=== PATIENT | female | born 1970 | race Caucasian/White ===

== ENCOUNTER 2018-08-03 10:52 | Observation (INO) ==
[2018-08-03] MEDS ORDERED: Metoprolol Tartrate 25 MG Tablet PO ONE (11:40)
[2018-08-03] MEDS ORDERED: Chlorhexidine Gluconate 2% 1 Pack (2 Cloths) TOPICAL ONE (11:40)
[2018-08-03] MEDS ORDERED: Sodium Chlor 0.9% Inj 500 ML IV.SIG ONE (12:00)
[2018-08-03] MEDS ORDERED: ceFAZolin 2 GM IV; once IV.SIG SCH (12:00)
[2018-08-03] MEDS ORDERED: Sodium Chloride 0.9% 2 ML Flush PRN IV.FLUSH (12:31)
[2018-08-03] MEDS ORDERED: Bupivacaine/Epinephrine Inj 0.25% 50 ML Vial ONE (12:39)
[2018-08-03] MEDS ORDERED: Glycopyrrolate Inj 1 MG/5 ML Syringe IV.PUSH ONE (15:02)
[2018-08-03] MEDS ORDERED: Normosol-R pH 7.4 Inj 2,000 ML IV.CONT ONE (15:02)
[2018-08-03] MEDS ORDERED: Neostigmine Inj 5 MG/5 ML Syringe IV.PUSH ONE (15:02)
[2018-08-03] MEDS ORDERED: Lidocaine PF 1% Inj 5 ML Syringe OTHER ONE (15:02)
[2018-08-03] MEDS ORDERED: Phenylephrine/NS 1000 MCG/10ML Syringe IV.PUSH ONE (15:02)
[2018-08-03] MEDS ORDERED: fentaNYL Citrate Inj 100 MCG/2 ML Ampul ONE ×2 (15:23→16:44)
[2018-08-03] MEDS ORDERED: Post-op Orders (for Pharmacy) OTHER ONE (16:22)
[2018-08-03] MEDS ORDERED: Naloxone Inj 0.4 MG/ML Vial IV.PUSH PRN (16:22)
--- NOTE | 2018-08-03 16:29 | P.OP ---
- Preoperative Diagnosis (1) Splenic mass (2) Abnormal gastrointestinal PET scan (3) Recurrent carcinoma of ovary - Postoperative Diagnosis (1) Abnormal gastrointestinal PET scan (2) Recurrent carcinoma of ovary (3) Splenic mass Date of procedure: 08/03/18 Procedure: Laparoscopic splenectomy Laparoscopic lysis of adhesions Laparoscopic peritoneal biopsies Anesthesia: CARMEN Surgeon: Curtis Flores MD Hydrodynamicist: Jamir Waldron CFA Estimated blood loss (mL): 20 Pathology: other (Spleen; peritoneal biopsy x 2) Operation and Findings: Operative findings: extensive adhesions throughout the abdomen. Uncomplicated splenectomy. Peritoneal nodules right upper quadrant- two biopsies sent. Procedure in detail: Patient was taken to operating room and placed in a supine position. General endotracheal anesthesia was induced. The abdomen is prepped and draped in usual sterile fashion and a surgical timeout was performed to verify correct patient procedure and site. Appropriate preoperative antibiotics were administered. Local anesthetic was injected in the skin and subcutaneous tissue in the right mid abdomen and a 5 mm incision made. Using the Optiview trocar with the laparoscope in place the abdomen was directly entered. It was insufflated to 15 mmHg with CO2 gas which the patient tolerated well. There were noted to be extensive intra-abdominal adhesions. A second 5 mm port was able to be placed in the upper midline. The transverse colon was adherent to the left upper abdominal wall. Some adhesions superior to the colon were carefully brought down sharply and the 15 mm port was placed.
[2018-08-03] MEDS ORDERED: ALPRAZolam 0.5 MG Tablet PO PRN (16:30)
[2018-08-03] MEDS ORDERED: *morphine SULFATE 10 MG/ML PERIprocedure ONLY ONE (16:41)
[2018-08-03] MEDS ORDERED: Morphine Inj 4 MG/ML Vial ONE (16:44)
[2018-08-03] MEDS ORDERED: *morphine SULFATE 4 MG/ML PERIprocedure ONLY ONE (16:49)
[2018-08-03] MEDS ORDERED: *HYDROmorphone PF Inj 1 MG/ML Ampul PERIprocedural Use ONLY ONE ×2 (16:57→17:26)
[2018-08-03] MEDS ORDERED: Montelukast 10 MG Tablet PO SCH (18:00)
[2018-08-03] MEDS: Ketorolac 10 MG Tablet PO SCH ×2 (21:00→23:43)
[2018-08-03] MEDS: buPROPion 100 MG Tablet PO SCH (21:00)
[2018-08-03] MEDS ORDERED: DULERA INH SCH (21:00)
[2018-08-03] MEDS: Sodium Chloride 0.9% 2 ML Flush BID IV.FLUSH SCH (21:01)
[2018-08-04] MEDS: Ketorolac 10 MG Tablet PO SCH (05:50)
[2018-08-04 06:17] LABS: Baso % (Auto) 0.1 % (0.0-2.0); Hemoglobin 11.5 gm/dL (11.6-15.3); Lymph # (Auto) 1.1 th/mm3 (1.0-4.8); Mean Corpuscular HGB Conc 33.9 % (32.0-36.0); Mean Corpuscular Hemoglobin 32.4 pg (27.0-34.0); Mean Corpuscular Volume 95.5 fL (80.0-100.0); Mean Platelet Volume 7.6 fL (7.0-11.0); Mono # (Auto) 0.6 th/mm3 (0.0-0.9); Mono % (Auto) 5.2 % (0.0-8.0); Neut # (Auto) 9.7 th/mm3 (1.8-7.7); Neut % (Auto) 84.7 % (16.0-70.0); Platelet Count 235 th/mm3 (150-450); Red Blood Count 3.56 mil/mm3 (4.00-5.30); Red Cell Distribution Width 13.6 % (11.6-17.2); White Blood Count 11.4 th/mm3 (4.0-11.0)
[2018-08-04 08:19] VITALS: BP 129/62; PULSE 77; RESP 17; TEMP 97.7; O2SAT 99
[2018-08-04] MEDS: buPROPion 100 MG Tablet PO SCH (08:48)
[2018-08-04] MEDS: Sodium Chloride 0.9% 2 ML Flush BID IV.FLUSH SCH (08:54)
--- NOTE | 2018-08-04 09:19 | P.PNGS ---
Subjective Patient reports: no new complaints, tolerating liquids well, no flatus Physical Exam Vital signs: Vital Signs 08/03/18 11:45 08/03/18 16:33 08/03/18 16:45 Temperature 98.5 F 97.7 F Pulse Rate 93 H 82 80 Respiratory Rate 16 17 17 Blood Pressure 128/80 127/66 141/66 H Pulse Oximetry 97 100 08/03/18 16:59 08/03/18 17:00 08/03/18 17:15 Temperature Pulse Rate 81 81 83 Respiratory Rate 17 17 16 Blood Pressure 118/67 117/66 Pulse Oximetry 100 100 100 08/03/18 17:30 08/03/18 17:35 08/03/18 17:50 Temperature 97.8 F 97.7 F Pulse Rate 83 82 Respiratory Rate 18 14 Blood Pressure 114/67 115/66 Pulse Oximetry 97 100 99 08/03/18 19:20 08/03/18 20:00 08/04/18 01:05 Temperature 97.2 F L 97.2 F L Pulse Rate 81 76 Respiratory Rate 16 18 18 Blood Pressure 113/64 111/62 Pulse Oximetry 97 98 08/04/18 04:00 08/04/18 08:00 Temperature 97.4 F L 97.7 F Pulse Rate 73 77 Respiratory Rate 18 17 Blood Pressure 108/65 129/62 Pulse Oximetry 98 99 Intake & Output 08/03/18 08/04/18 08/04/18 18:59 06:59 18:59 Intake Total 2450 / 2450 Output Total 210 / 210 Balance 2240 / 2240 Weight 71.8 kg Intake: IV 50 / 50 Ancef 2 GM Premix Inj 2 gm In 50 / 50 50 ml @ 100 mls/hr IV.SIG LEAN SIX SIGMA BLACK BELT [facility] Rx#:[id number] Anesthesia Amount 2400 / 2400 Output: Estimated Blood Loss 10 10 Urine Amount (Catheter) 200 / 200 Indwelling Urethral Catheter 200 / 200 Other: # Voids 1 Weight On Admission 71.8 kg - Constitutional no acute distress - Routine Abdominal Exam Present: soft, tenderness Comments: incisional tenderness - Urinary Catheter Management Indwelling Urethral Catheter Cath placed during this visit: yes, but has since been removed by the nurse Reason for continuing: Decision to DC catheter Insertion date: 08/03/18 Insertion time: 13:22 Removal date: 10/26/18 Removal time: 16:25 Results - Labs 08/04/18 05:13 Laboratory Results - last 24 hr 08/04/18 05:13 WBC 11.4 H RBC 3.56 L Hgb 11.5 L Hct 34.0 L MCV 95.5 MCH 32.4 MCHC 33.9 RDW 13.6 Plt Count 235 MPV 7.6 Neut % (Auto) 84.7 H Lymph % (Auto) 10.0 [place] % (Auto) 5.2 Eos % (Auto) 0.0 Baso % (Auto) 0.1 Neut # (Auto) 9.7 H Lymph # (Auto) 1.1 [place] # (Auto) 0.6 Eos # (Auto) 0.0 Baso # (Auto) 0.0 WBC Differential . Differential Comment Auto diff final Assessment and Plan - Assessment (1) Recurrent carcinoma of ovary Code(s): C56.9 - Malignant neoplasm of unspecified ovary Status: Acute (2) Splenic mass Code(s): R16.1 - Splenomegaly, not elsewhere classified Status: Acute Plan: S/P splenectomy D/C home f/u office Toradol for pain no strenuous activities - Attending Attestation The exam, history, and the medical decision-making described in the above note were completed with the assistance of the mid-level provider. I reviewed and agree with the findings presented. I attest that I had a [id number] encounter with the patient on the same day, and personally performed and documented my assessment and findings in the medical record.
== END 2018-08-04 11:46 | disposition home or self-care (01) ==
LOC: INTOOBSV 10:52 → HSDI 10:52 → N07 17:51
PROVIDERS: ADMIT Surgery; ATTEND Surgery